=== PATIENT | male | born 1990 | race American Indian/Alaskan Native ===

== ENCOUNTER 2019-06-18 07:12 | Day surgery (SDC) | payer BC ==
[~2019-06-18 07:12] MED LIST: LACTATED RINGERS 1,000 ML IV SCH; MIDAZOLAM 2 MG/2 ML INJ IV NR; ceFAZolin/Water 2 GM/20 ML 2 GM/20 ML SYRINGE IV NR
[2019-06-18] MEDS ORDERED: LIDOCAINE MPF (2%) 20 MG/1 ML VIAL 5 ML ONE (07:28)
[2019-06-18] MEDS ORDERED: HYDROmorphone 1 MG/1 ML INJ ONE (07:28)
[2019-06-18] MEDS ORDERED: PROPOFOL 200 MG/20 ML VIAL IV ONE (07:28)
--- NOTE | 2019-06-18 07:30 | Anesthesia Day of Surgery ---
Anesthesia Day of Surgery - Day of Surgery Patient Examined: Yes Patient H&P Reviewed: Yes Patient is NPO: Yes
--- NOTE | 2019-06-18 07:30 | Anesthesia Consultation ---
Anesthesia Consult and Med Hx Date of service: 06/18/19 - Airway Anesthetic Teeth Evaluation: Good ROM Head & Neck: Adequate Mental/Hyoid Distance: Adequate Mallampati Class: Class II Intubation Access Assessment: Probably Good - Pulmonary Exam CTA: Yes - Cardiac Exam Cardiac Exam: RRR - Pre-Operative Health Status ASA Pre-Surgery Classification: ASA2 Proposed Anesthetic Plan: General - Pulmonary Hx Smoking: Yes (quit 1 month ago; previously 1/2 PPD) Hx Respiratory Symptoms: No Hx Sleep Apnea: No (ALHAJI PRE SCREEN LOW RISK) - Cardiovascular System Hx Hypertension: No Hx Heart Attack/AMI: No Hx Percutaneous Transluminal Coronary Angioplasty (PTCA): No Hx Cardia Arrhythmia: No - Central Nervous System CVA: No Hx Psychiatric Problems: No - Gastrointestinal Hx Gastroesophageal Reflux Disease: No - Endocrine Hx Renal Disease: No Hx Liver Disease: No Hx Insulin Dependent Diabetes: No Hx Non-Insulin Dependent Diabetes: No Hx Thyroid Disease: No - Hematic 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 No FHx anesthetic complications.
[2019-06-18] MEDS ORDERED: LIDOCAINE JELLY (2%) 5 ML TOPICAL ONE (07:54)
[2019-06-18] MEDS ORDERED: ACETIC ACID 3% SOLN 60 ML TP ONE (07:54)
[2019-06-18] MEDS ORDERED: MIDAZOLAM 2 MG/2 ML INJ IV NR (08:00)
[2019-06-18] MEDS ORDERED: LIDOCAINE 2% UROJECT 10 ML JELLY UR ONE (08:34)
--- NOTE | 2019-06-18 08:48 | Short Stay Summary ---
Short Stay Documentation Date of service: 06/18/19 - History H&P: obtained from office - Allergies and Medications Current Medications: Allergies No Known Allergies Allergy (Unverified 01/07/19 15:55) Home Medications Medication Instructions Recorded Confirmed Last Taken Type No Known Home Medications [No 01/07/19 06/09/19 Unknown History Reported Home Medications] Active Medications Fentanyl (Sublimaze) 50 mcg IV Q5MIN PRN PRN Reason: Pain , Severe (7-10) Stop: 06/18/19 23:00 Cefazolin Sodium (Ancef/Sterile Water 2 Gm/20 Ml) 2 gm in 20 mls @ 80 mls/hr IV PREOP NR; Protocol Stop: 06/18/19 23:59 Lactated Ringer's (Lactated Ringers) 1,000 mls @ 100 mls/hr IV DIRECT KORY Last Admin: 06/18/19 07:40 Dose: 100 mls/hr Documented by: Midazolam HCl (Versed) 2 mg IV PREOP NR Stop: 06/18/19 23:59 Last Admin: 06/18/19 07:45 Dose: 2 mg Documented by: - Brief post op/procedure progress note Date of procedure: 06/18/19 Pre-op diagnosis: penile lesions, bladder outlet obstrucion Post-op diagnosis: same Procedure: cysto, rpg, excision & CO2 laser lesions Anesthesia: GETA Surgeon: KAILA SALOMON Estimated blood loss: minimal Pathology: list (penils & sp area lesions) Specimen disposition: to lab Condition: stable - Hospital course Hospital course: tararo & terra on chart - Disposition Condition at discharge: Stable Disposition: DC- TO HOME OR SELFCARE Short Stay Discharge Plan Follow up with: ODILIA FLORENTINO [Other] - 7 Days
[2019-06-18] MEDS ORDERED: HYDROcodone/ACETAMINOPHEN 5-325 MG TAB PO PRN (09:30)
[2019-06-18] MEDS: fentaNYL 100 MCG/2 ML INJ IV PRN ×2 (09:33→09:39)
[2019-06-18 10:02] VITALS: BP 110/65
--- NOTE | 2019-06-18 11:04 | Post Anesthesia Evaluation ---
- Post Anesthesia Evaluation Patient Participated: Yes Airway Patent: Yes Stable Respiratory Function: Yes Nausea/Vomiting: No Temp > 96.8F: Yes Pain Manageable: Yes Adequeate Hydration: Yes Anesthesia Complications: No
--- NOTE | 2019-06-18 12:23 | Fluoroscopy Report ---
FLUOROSCOPY RETROGRADE UROGRAPHY HISTORY: Bladder outlet obstruction, penile lesions FINDINGS: 7 seconds of fluoroscopy time was provided by radiology during retrograde urography by the urologist. 6 fluoroscopic images are presented which demonstrate normal opacification of the renal co llecting systems bilaterally. No filling defect or abnormal dilatation is identified. IMPRESSION: No abnormality identified. Signer Name: Angel Cortez Jr, MD Signed: 06/18/2019 12:19 PM Workstation Name: [id number]
--- NOTE | 2019-06-18 12:34 | Operative Report ---
PREOPERATIVE DIAGNOSIS: Penile lesions x 5 with bladder outlet obstruction. POSTOPERATIVE DIAGNOSIS: Penile lesions x 5 with bladder outlet obstruction. PROCEDURE: Cystoscopy, bilateral retrograde pyelograms, excision and CO2 laser of multiple penile lesions (5 at the base of the penis and one in the suprapubic area). SURGEON: Klaus Michel MD ANESTHESIA: General. ESTIMATED BLOOD LOSS: Minimal. FLUIDS: Crystalloid. COMPLICATIONS: No complications. INDICATIONS: This patient is a 28-year-old gentleman seen in the office with multiple penile lesions at the base of the penis approximately 5 mm each. A trial of Condylox was unsuccessful and he presents now for endoscopic evaluation. He also reports intermittent decreased force of stream and split stream. DESCRIPTION OF PROCEDURE: The patient was taken to the operative suite, placed in a supine position. After adequate general anesthesia, he was placed in a dorsal lithotomy position, prepped and draped in a sterile fashion. Pancystourethroscopy was performed with 22-Sami Storz cystoscope, no urethral abnormalities. His prostate was minimally obstructing. Bladder, no tumors or stones were noted. Bilateral retrograde pyelograms were obtained with an 8-Sami [place] catheter and 8 mL of contrast. No filling defects or obstruction. Next, the penile lesions could be appreciated with careful examination of the scrotum, penis and suprapubic area. There was one lesion in the midline of the suprapubic area that was excised and closed with 2-0 chromic in an interrupted fashion. Prior to closure of the base was CO2 laser around the base at 4 hi. Similar procedure was performed at the lesions on the penile shaft. The bulk of them on the right side, there was one on the left. They were all excised. The rim was lasered with the CO2 laser and then 2-0 chromic was used to close the incisions. Silvadene cream was placed. The patient tolerated the procedure well and was extubated. Rectal exam was benign. He was extubated and taken to recovery room in stable condition. He will go home on Cipro, [place], and Silvadene cream. JOB# [id number] Nallely/JUDI
== END 2019-06-18 07:13 | disposition home or self-care (01) ==
LOC: OR 07:12
PROVIDERS: ATTEND Urology
DX: N48.89 Other specified disorders of penis (principal); A63.0 Anogenital (venereal) warts; Z87.891 Personal history of nicotine dependence; Z79.899 Other long term (current) drug therapy; Z72.89 Other problems related to lifestyle; Z98.890 Other specified postprocedural states; Z86.2 Personal history of diseases of the blood and blood-forming organs and certain disorders involving the immune mechanism
CPT/HCPCS: 52005; 54057; 74420; 88305; J0690; J1170; J2250; J2704; J3010; J7120; Q9967